=== PATIENT | male | born 1970 | race Caucasian/White ===

== ENCOUNTER 2016-10-12 06:17 | Emergency (ER) | payer BC ==
[2016-10-12 06:28] VITALS: BP 157/89
--- NOTE | 2016-10-12 07:16 | EDM.PDOC ---
ED HPI GENERAL MEDICAL PROBLEM - General Chief Complaint: General Stated Complaint: right knee pain Time Seen by Provider: 10/12/16 07:06 Source of Information: Reports: Patient History Limitations: Reports: No Limitations - History of Present Illness INITIAL COMMENTS - FREE TEXT/NARRATIVE: Patient complains of several day history of right knee pain. Knee has been swollen, painful, warm. Painful to walk. Painful at night while trying to sleep. No injury per patient. No history of similar problem in past. Pain is localized to knee. Denies fevers/chills. No GI changes. No other complaints. Hx of HTN. Treatments [employer]: Reports: NSAIDS Right Knee Pain Score (Numeric/FACES): 6 - Related Data Allergies Allergy/AdvReac Type Severity Reaction Status Date / Time No Known Allergies Allergy Verified 10/12/16 06:18 Home Meds: Home Meds Cephalexin [Keflex] 500 mg PO Q6HR #16 cap 10/12/16 [Rx] Ibuprofen 800 mg PO Q6HR PRN 10/12/16 [History] amLODIPine/Benazepril [Lotrel 5-20 MG] 1 cap PO DAILY 10/12/16 [History] Past Medical History Cardiovascular History: Reports: Hypertension Social & Family History - Tobacco Use Smoking Status *Q: Never Smoker Second Hand Smoke Exposure: No - Caffeine Use Caffeine Use: Reports: Soda - Recreational Drug Use Recreational Drug Use: No ED ROS GENERAL - Review of Systems Review Of Systems: See Below Constitutional: Reports: No Symptoms. Denies: Fever, Chills, Night Sweats HEENT: Reports: No Symptoms Respiratory: Reports: No Symptoms Cardiovascular: Reports: No Symptoms GI/Abdominal: Reports: No Symptoms : Reports: No Symptoms Musculoskeletal: Reports: Joint Pain, Joint Swelling Skin: Reports: Erythema Neurological: Reports: No Symptoms Psychiatric: Reports: No Symptoms Hematologic/Lymphatic: Reports: No Symptoms ED EXAM, GENERAL - Physical Exam Exam: See Below Exam Limited By: No Limitations General Appearance: Alert, WD/WN, No Apparent Distress Eye Exam: Bilateral Eye: EOMI, PERRL Ears: Normal External Exam Nose: Normal Inspection Throat/Mouth: Normal Inspection, Normal Voice, No Airway Compromise Head: Atraumatic, Normocephalic Neck: Normal Inspection, Supple, Non-Tender, Full Range of Motion Respiratory/Chest: No Respiratory Distress, Lungs Clear, Normal Breath Sounds, No Accessory Muscle Use, Chest Non-Tender Cardiovascular: Normal Peripheral Pulses, Regular Rate, Rhythm, No Murmur Peripheral Pulses: 2+: Radial (L), Radial (R), Dorsalis Pedis (L), Dorsalis Pedis (R) GI/Abdominal: Normal Bowel Sounds, Soft, Non-Tender, No Distention (Male) Exam: Deferred Rectal (Males) Exam: Deferred Extremities: Normal Inspection, Other (right knee swollen, upper portion of lower leg appears very mildly swollen also. Calf non-tender. ). No: Bebeto's Sign Neurological: Alert, Oriented, Normal Cognition, No Motor/Sensory Deficits, Abnormal Gait (favors right knee) Psychiatric: Normal Affect, Normal Mood Skin Exam: Warm, Dry, Erythema (increased over right knee and faint erythema noted just distal to knee), Increased Warmth (over right knee), Other (small scab on skin over patella. No drainage. Patient said it was from "dry skin") Course - Vital Signs Last Recorded V/S: Last Vital Signs Temp 36.7 C 10/12/16 06:20 Pulse 100 10/12/16 06:20 Resp 20 10/12/16 06:20 BP 157/89 H 10/12/16 06:20 Pulse Ox 100 10/12/16 06:20 - Orders/Labs/Meds Orders: Active Orders 24 hr Category Date Time Status Knee 3V Rt [CR] Stat Exams 10/12/16 06:44 Ordered CBC WITH AUTO DIFF [HEME] Stat Lab 10/12/16 07:06 Ordered COMPREHENSIVE METABOLIC PN,CMP [CHEM] Stat Lab 10/12/16 07:06 Ordered - Radiology Interpretation Free Text/Narrative:: No acute changes suggesting bony injury or infection noted (knee films) - Re-Assessments/Exams Free Text/Narrative Re-Assessment/Exam: 10/12/16 07:23 Will treat for cellulitis. Does not appear consistent with bursitis at this time. Rocephin given in ER. Will place patient on Keflex. He is to return for re -eval if symptoms worsen or if no improvement within 48 hours. Numerous precautions reviewed prior to discharge. Patient is comfortable with plan. Departure - Departure Time of Disposition: 07:45 Disposition: Home, Self-Care 01 Condition: Good Clinical Impression: Cellulitis Qualifiers: Site of cellulitis: extremity Site of cellulitis of extremity: lower extremity Laterality: right Qualified Code(s): L03.115 - Cellulitis of right lower limb - Discharge Information Prescriptions: Cephalexin [Keflex] 500 mg PO Q6HR #16 cap Instructions: Cellulitis, Adult, Knee Pain Referrals: Amanda Salas PA [Primary Care Provider] - Additional Instructions: Follow up for re-evaluation of pain/swelling gets worse or if you develop fevers. Follow up Wednesday with your primary clinic for recheck. - My Orders Last 24 Hours: My Active Orders 10/12/16 06:44 Knee 3V Rt [CR] Stat 10/12/16 07:06 CBC WITH AUTO DIFF [HEME] Stat COMPREHENSIVE METABOLIC PN,CMP [CHEM] Stat - Assessment/Plan Last 24 Hours: My Active Orders 10/12/16 06:44 Knee 3V Rt [CR] Stat 10/12/16 07:06 CBC WITH AUTO DIFF [HEME] Stat COMPREHENSIVE METABOLIC PN,CMP [CHEM] Stat
[2016-10-12] MEDS ORDERED: cefTRIAXone 1 GM Vial IM ONE (07:25)
[2016-10-12 07:50] LABS: CHLORIDE,CL 101 mmol/L (98-107); SODIUM,NA 137 mmol/L (136-145)
== END 2016-10-12 07:54 | disposition home or self-care (01) ==
LOC: LL.ED 06:17
DX: L03.115 Cellulitis of right lower limb (principal); I10 Essential (primary) hypertension; Z79.899 Other long term (current) drug therapy
CPT/HCPCS: 36415; 73562; 80053; 85025; 96372; 99284; J0696